=== PATIENT | male | born 1970 | race Caucasian/White ===

== ENCOUNTER 2024-04-07 09:12 | Emergency (ER) | payer BC, SELFPAY ==
[2024-04-07 09:26] VITALS: BP 152/100
--- NOTE | 2024-04-07 10:49 | ED.GENMED ---
History of Present Illness
General
Chief Complaint: Fainting/Passed Out
Source: patient
Exam Limitations: none
Time Seen by Provider: 04/07/24 10:37
Nursing documentation reviewed up to this point in time: agreed with
Travel History
Have you had any contact with someone who has COVID-19?: No
Do you have any symptoms of coronavirus? Fever > 100 degrees, chills, cough, shortness of breath, sore throat, loss of taste or smell, muscle aches, or headache?: No
History of Present Illness
History of Present Illness:
Patient is a 53-year-old male who was at a dermatology office prior to arrival and getting lidocaine injected into his right leg when he suddenly got lightheaded had a syncopal episode and apparently fell out of the exam room chair. He did hit the
left side of his head. He denies any headache but reports he feels sore all over and feels a little dizzy.. He did not eat or drink anything prior to the procedure.
He is not on blood thinners.
Past History
Past History
ED Past Medical History: Hypercholesterolemia
ED Past Surgical History: None
Social History
Tobacco: Non-smoker
Alcohol: Occasional
Personal:
Living: with family
Review of Systems
Review of Systems
Allergies reviewed?: Yes
All Other Systems: ROS reviewed and negative except as documented in HPI and ROS
Constitutional: Reports no symptoms; Denies fever, fatigue or chills
Respiratory: Reports no symptoms
Cardiac: Reports syncope
ABD/GI: Reports no symptoms
Skin: Reports no symptoms
Neurological: Reports dizzy; Denies headache
Phy Exam
General Physical Exam
General Presentation: no apparent distress
General age: appears stated age
General Skin: warm and dry
General Habitus: normal
General Mental: alert
General Hydration: appears well hydrated
Eye Exam
Eye Exam: PERRL and EOMI
Eye Exam General: PERRL: bilateral and EOM intact: bilateral
Pupil Exam: Bilateral: round and reactive
Neurological Exam
Neurological Exam: alert, oriented x3 and no motor deficits
Munday Coma Scale
Eye Opening: Spontaneous
Verbal Response: Oriented
Motor Response: Obeys Commands
GCS Total Score: 15
Musculoskeletal Exam
Musculoskeletal Exam: full ROM
Skin Exam
Skin Exam: normal color and warm/dry
Psychiatric Exam
Psychiatric Exam: normal mood/affect
Course
Orders/Labs/Results
Orders:
Orders
04/07/24 10:55
Electrocardiogram (*1) Stat
Reason for Study: Other
Other Reason for Exam: chest pain
CT Head W/o Iv Contrast Urgent
Comment:
Reason For Exam: trauma/syncope /head injury
Cardiac Monitoring- Treatment ONCE
EKG- Treatment ONCE
Vital Signs
Initial and Last Documented VS:
Initial Vital Signs
Temp Pulse Resp BP Pulse Ox
98.0 F 62 20 152/100 98
04/07/24 09:26 04/07/24 09:26 04/07/24 09:26 04/07/24 09:26 04/07/24 09:26
Last Documented Vital Signs
Temp Pulse Resp BP Pulse Ox
98.0 F 66 14 122/73 98
04/07/24 09:26 04/07/24 11:40 04/07/24 11:40 04/07/24 11:40 04/07/24 09:26
MDM/Problems Addressed
Differential Diagnosis Includes:
not limited to: head injury , vagal episode
MDM/Problems Addressed:
Symptoms are consistent with vagal episode while patient was getting a medical procedure done and subsequently fell and hit his head. Patient is not on blood thinners he presents awake alert no acute distress no headache normal neurologic exam
mildly dizzy. Patient is small area of redness to left forehead with no hematoma. CT head negative. No bony cervical tenderness. No acute findings on EKG. Patient remains awake alert no acute distress here.
Will DC home
*Critical Care Note
Total Time (30-74mins, 75-104mins- exclusive of procedures): Not Applicable
ED Attending Note
-
Portions of this chart may have been created with voice recognition software.� Occasional wrong word or��sound alike� substitutions may have occurred due to the inherent limitations of voice recognition software.
Discharge Plan
Departure
Patient Disposition: Home (Routine Discharge)
Date of Disposition: 04/07/24
Time of Disposition: 13:00
Patient with high blood pressure during this ER visit?: Yes
Condition: Fair
Covid-19: Not Applicable
Discharge Problem:
Vasovagal syncope, Head injury
Instructions: Syncope (fainting), Head injury in adults, Vasovagal Response (DC), BLOOD PRESSURE
Prescriptions:
No Action
multivitamin 1 EACH capsule
1 tab PO DAILY
omega-3 fatty acids-fish oil 1 EACH capsule
1 PO DAILY
meclizine 25 MG tablet
25 mg PO Q8HPRN PRN (Reason: prn for dizziness/vertigo) Qty: 20 0RF
Referrals:
Holden Knott MD [Family Provider] -
Activity Restrictions/Additional Instructions:
Follow-up with family doctor in the next 2 to 3 days for reevaluation and return if any worsening of symptoms.
Discharge Date and Time
Print Language: [place]
[2024-04-07 11:20] VITALS: BP 124/68
[2024-04-07 11:30] VITALS: BP 122/78
[2024-04-07 11:40] VITALS: BP 122/73
== END 2024-04-07 13:42 | disposition home or self-care (01) ==
LOC: EMR 09:12
PROVIDERS: EMERGENCY PHYSICIAN Emergency Medicine; FAMILY PHYSICIAN Family Medicine
DX: R55 Syncope and collapse (principal); S09.90XA Unspecified injury of head, initial encounter; S00.81XA Abrasion of other part of head, initial encounter; W07.XXXA Fall from chair, initial encounter; Y93.89 Activity, other specified; Y92.531 Health care provider office as the place of occurrence of the external cause; R03.0 Elevated blood-pressure reading, without diagnosis of hypertension; E78.00 Pure hypercholesterolemia, unspecified
CPT/HCPCS: 99284; 70450; 93005

== ENCOUNTER → 2024-06-18 06:26 | Day surgery (SDC) | payer BC, SELFPAY | LOC: GI 06:26 | PROVIDERS: ATTENDING PHYSICIAN Internal Medicine | DX: Z12.11 Encounter for screening for malignant neoplasm of colon (principal) | CPT/HCPCS: G0121 ==